=== PATIENT | female | born 1995 | race Caucasian/White ===

== ENCOUNTER → 2018-09-16 | Outpatient (CLI) | payer OTHER ==
--- NOTE | 2018-09-16 17:36 | CT ---
EXAMINATION TYPE: CT soft tissue neck w con DATE OF EXAM: 09/16/2018 COMPARISON: None HISTORY: Lt neck swelling CT DLP: 251.3 mGycm CONTRAST: Patient injected with 100 mL of Isovue 300. TECHNIQUE: Axial images at 3 mm thick sections. Reconstructed images in the coronal plane and sagitt al plane are reviewed. FINDINGS: Limited CT sections are obtained the lung apices. The lung apices appear clear. CT neck: The torus tubarius and fossa of Rosenmuller are normal. Litharge Supervisor spaces are normal. Para nasal sinuses and mastoid air cells are clear. Parotid glands appear normal and symmetrical. Submandibular glands, are normal. Parapharyngeal spac es are normal. No suspicious adenopathy is evident. The hypopharynx appears within normal limits. Vocal cord level appear symmetrical. Subglottic airway appears normal. Thyroid as visualized is normal. Osseous structures are normal. BB morillo the left neck swelling which corresponds to the sternocleidomastoid muscle. This appears sym metrical with the contralateral side. IMPRESSIONS: 1. Normal soft tissue neck. 2. No suspicious etiology to account for left neck swelling.
== END | disposition home or self-care (01) ==
LOC: RADCTMAIN 13:16
PROVIDERS: ATTEND Family Medicine
DX: R22.1 Localized swelling, mass and lump, neck (principal)
CPT/HCPCS: 70491; Q9967